=== PATIENT | female | born 1990 | race African-American/Black ===

== ENCOUNTER 2023-10-18 13:45 | Emergency (ER) | payer OTHER, SELFPAY ==
--- NOTE | ~2023-10-18 | CT_ITS ---
EXAMINATION: CT abdomen pelvis w con DATE: 10/18/2023 17:11 INDICATION: Right lower quadrant abdominal pain TECHNIQUE: Computed tomography (CT) of the abdomen and pelvis was performed with 100 mL Omnipaque-350 intravenous contrast. Automated exposure control and iterative reconstruction technique were employe d. The dose-length product was 1623.63 mGy-cm. COMPARISON: None FINDINGS: Lung bases are clear. Heart size is normal. No pericardial or pleural effusion. Focal hepatic steatos is at the ligamentum teres. Gallbladder, spleen, pancreas, bilateral adrenal glands and kidneys are n ormal. Bladder is normal. 1.7 cm left ovarian cyst/follicle. Bowels including the appendix are normal . There is approximately 2.2 x 1.7 cm nodular soft tissue density which appears contiguous with the r ight side of the fundus of the anteverted uterus which abuts the anterior pelvic wall at the level of a transverse likely section scar in the anterior abdominal wall. This is separate from the right ovary which is difficult to distinguish from a couple loops of adjacent small bowel in the righ t adnexal region. No free intraperitoneal gas or fluid. No pathologically enlarged abdominal or pelvi c lymphadenopathy. Transitional left-sided sacralized L5 segment. IMPRESSION: 1. Indeterminate 2.2 x 1.7 cm nodular soft tissue density abutting the right uterine fundus and the a nterior orbital wall which appears separate from the right ovary. This likely differential would incl ude pedunculated uterine fibroid, endometrioma or postoperative scarring. Consider further evaluation with pre and postcontrast MRI. 2. No other acute intra-abdominal/pelvic process. Specifically normal gallbladder and appendix. Reviewed, dictated and finalized at location A. [employer] IMPRESSION: 1. Indeterminate 2.2 x 1.7 cm nodular soft tissue density abutting the right ut erine fundus and the anterior orbital wall which appears separate from the righ t ovary. This likely differential would include pedunculated uterine fibroid, e ndometrioma or postoperative scarring. Consider further evaluation with pre and postcontrast MRI. 2. No other acute intra-abdominal/pelvic process. Specifically normal gallbladd er and appendix.
--- NOTE | ~2023-10-18 | US_ITS ---
EXAMINATION: US abdomen limited DATE: 10/18/2023 16:58 INDICATION: Right upper quadrant pain TECHNIQUE: Multiple grayscale and Doppler ultrasound images of the abdomen were obtained. COMPARISON: None available FINDINGS: Bowel gas obscures visualization of the pancreas. The liver is normal with normal echogenic ity and echotexture. No surface nodularity. Normal hepatopetal flow in the main portal vein. The gall bladder is normal with no abnormal wall thickening, pericholecystic fluid or stones. The normal commo n bile duct measures 5 mm. There was no sonographic Archer sign. IMPRESSION: 1. Normal sonographic study of the gallbladder. Reviewed, dictated and finalized at location B. [employer]
[2023-10-18 14:00] VITALS: BP 139/56; PULSE 98; RESP 18; TEMP 36.6; O2SAT 100
--- NOTE | 2023-10-18 15:35 | ED.ABDPAIN ---
HPI - Abdominal Pain General Chief Complaint: Abdominal Pain <Nathalie Iyer PA-C - Last Filed: 10/18/23 18:26> Stated Complaint: abd pain <Nathalie Iyer PA-C - Last Filed: 10/18/23 18:26> Time Seen by Provider: 10/18/23 16:10 <Nathalie Iyer PA-C - Last Filed: 10/18/23 18:26> Source: patient <Nathalie Iyer PA-C - Last Filed: 10/18/23 18:26> Mode of arrival: ambulatory <Nathalie Iyer PA-C - Last Filed: 10/18/23 18:26> Limitations: no limitations <Nathalie Iyer PA-C - Last Filed: 10/18/23 18:26> History of Present Illness HPI narrative: This is a 33 year old female that presents to the ER for abdominal pain. Ongoing over the last couple of days. Associated with vomiting and some diarrhea. She was sent in for further evaluation by her PCP. Denies fevers. <Nathalie Iyer PA-C - Last Filed: 10/18/23 18:26> Related Data Allergies/Adverse Reactions: Allergies Allergy/AdvReac Type Severity Reaction Status Date / Time No Known Allergies Allergy Verified 10/18/23 14:01 <Nathalie Iyer PA-C - Last Filed: 10/18/23 18:26> Review of Systems Review of Systems: CONSTITUTIONAL: Denies fever GASTROINTESTINAL: Reports abdominal pain, nausea, vomiting, and diarrhea. GENITOURINARY: Denies dysuria <Nathalie Iyer PA-C - Last Filed: 10/18/23 18:26> All systems reviewed & are unremarkable except as noted in HPI and below <Nathalie Iyer PA-C - Last Filed: 10/18/23 18:26> [facility] Past Medical History Medical History: Medical History (Updated 10/18/23 @ 18:26 by Nathalie Iyer PA-C) History of anemia <Nathalie Iyer PA-C - Last Filed: 10/18/23 18:26> Social History Social History: Social History Smoking status: Never smoker Spiritual care concerns: No <Nathalie Iyer PA-C - Last Filed: 10/18/23 18:26> Exam Narrative: GENERAL: Well-appearing, well-nourished, and in no acute distress. HEAD: Normocephalic, atraumatic. EYES: EOMI. CHEST: Clear to auscultation. No respiratory distress. No wheezes rales or rhonchi HEART: Regular rate and rhythm. No murmur heard. Normal peripheral pulses. ABDOMEN: Soft, nondistended, normal active bowel sounds. Tender to palpation in the right upper quadrant without guarding. No CVA tenderness EXTREMITIES: Normal range of motion. No edema. SKIN: Warm, dry, no rash. NEURO: No focal deficits. Alert and oriented x3. PSYCH: Normal mood and affect <Nathalie Iyer PA-C - Last Filed: 10/18/23 18:26> Course Course Emergency Course: Discussed results. Patient reports chronic discomfort around right lower quadrant related to her period. She has had ultrasounds in the past but nothing revealing. Discussed abnormality on CT and need for MRI. Patient can follow-up with her campus executive director in [place]. <Nathalie Iyer PA-C - Last Filed: 10/18/23 18:26> discussed results. Patient reports chronic discomfort around right lower quadrant related to her. . She has had ultrasounds in the past but nothing revealing. Discussed abnormality on CT need for MRI. Patient can follow-up with her campus executive director and shallow. <Jack Little MD - Last Filed: 10/18/23 18:06> Vital Signs Vital signs: Vital Signs Temperature 97.8 F 10/18/23 14:00 Pulse Rate 98 10/18/23 14:00 Respiratory Rate 18 10/18/23 14:00 Blood Pressure 139/56 L 10/18/23 14:00 Pulse Oximetry 100 10/18/23 14:00 Temperature 97.8 F 10/18/23 14:00 Pulse Rate 83 10/18/23 18:16 Respiratory Rate 18 10/18/23 18:16 Blood Pressure 154/80 H 10/18/23 18:16 Pulse Oximetry 98 10/18/23 18:16 <Nathalie Iyer PA-C - Last Filed: 10/18/23 18:26> Vital Signs Temperature 97.8 F 10/18/23 14:00 Pulse Rate 98 10/18/23 14:00 Respiratory Rate 18 10/18/23 14:00 Blood Pressure 139/56 L 10/18/23 14:00 Pulse Oximetry 100 10/18/23 14:00 Temperature 97.8 F 10/18/23 14:00 Pulse Rate 83
[2023-10-18 15:47] LABS: Basophils Percent Auto 0.5 % (0.2-1.2); Eosinophils Absolute Auto 0.1 K/mm3 (0-0.3); Eosinophils Percent Auto 2.7 % (0-4.4); Hematocrit 36.1 % (37.0-47.0); Hemoglobin 11.4 g/dL (12.0-15.0); Immature Granulocyte Absolute 0.01 K/mm3 (0.00-0.031); Immature Granulocyte Percent A 0.2 % (0-0.5); Lymphocytes Absolute Auto 1.24 K/mm3 (0.9-3.2); Lymphocytes Percent Auto 30.8 % (18.3-44.2); Mean Corpuscular HGB Conc 31.6 g/dl (32-36); Mean Corpuscular Hemoglobin 25.7 pg (26-34); Mean Corpuscular Volume 81.5 fl (80-100); Monocytes Absolute Auto 0.3 K/mm3 (0.1-0.6); Monocytes Percent Auto 6.7 % (2.6-8.5); Neutrophils Absolute Auto 2.4 K/mm3 (1.3-6.7); Neutrophils Percent Auto 59.1 % (45.5-73.1); Platelet Count Result 257 k/mm3 (150-375); Red Blood Count 4.43 M/mm3 (4.2-5.4); Red Cell Distribution Width 13.9 % (11.5-14.5)
[2023-10-18 15:53] LABS: Appearance Urine Cloudy (Clear); Bacteria Urine 1+ /hpf; Bilirubin Urine Negative (Negative); Blood Urine Negative (Negative); Color Urine Yellow (Yellow); Glucose Urine UA Negative (Negative); Ketones Urine Trace mg/dL (Negative); Leukocyte Esterase Ur Negative LEU/UL (Negative); Nitrate Urine Negative (Negative); Non Pathogenic Casts 0-2; Protein Urine Negative (Negative); RBC Urine 0-2 /hpf (0-2); Specific Grav Ur 1.026 (1.001-1.035); Squamous Epithelial Cell Urine Few /hpf (Few)
[2023-10-18 15:55] LABS: Add Urine Microscopic? YES
[2023-10-18 15:58] LABS: Alanine Aminotransferase 37 U/L (6-35); Albumin Level 4.3 g/dL (3.5-5.1); Alkaline Phosphatase 83 U/L (38-126); Anion Gap 6 mmol/L (8-16); Aspartate Amino Transferase 43 U/L (14-36); Bilirubin,Total 0.3 mg/dL (0.2-1.3); Blood Urea Nitrogen 8 mg/dL (7-17); Carbon Dioxide 27 mmol/L (22-30); Chloride 103 mmol/L (98-107); Estimated CRCL calculation 127 ml/min; Estimated Glomerular Filt Rate > 60; Glucose 92 mg/dL (65-110); Lipase 155 U/L (23-300); Potassium 3.9 mmol/L (3.4-5.0); Sodium 136 mmol/L (137-145)
[2023-10-18 16:51] LABS: Influenza A QL RT-PCR Negative (Negative); Influenza B QL RT-PCR Negative (Negative); SARS-CoV-2 RNA PCR Negative (Negative)
[2023-10-18] MEDS: KETOROLAC 30 MG/ML VIAL (*BKC) IV PUSH (17:15)
[2023-10-18 18:16] VITALS: BP 154/80; PULSE 83; RESP 18; O2SAT 98
== END 2023-10-18 18:21 | disposition home or self-care (01) ==
PROVIDERS: Physician Assistant; Emergency Provider Emergency Medicine; PCP Emergency Medicine
DX: K52.9 Noninfective gastroenteritis and colitis, unspecified (principal); Q51.9 Congenital malformation of uterus and cervix, unspecified; N39.0 Urinary tract infection, site not specified; Z20.822 Contact with and (suspected) exposure to COVID-19
CPT/HCPCS: 36415; 74177; 76705; 80053; 81001; 81025; 83690; 85025; 87086; 87088; 87636; 96374; 99284; J1885; Q9967